=== PATIENT | male | born 1940 | race Caucasian/White ===

== ENCOUNTER 2019-04-29 12:16 | Outpatient (CLI) | payer OTHER, MEDICARE, SELFPAY ==
[2019-04-29 12:59] LABS: Basophils % 0.6 %; Eosinophils # 0.1 10^3/uL (0.0-0.8); Eosinophils % 2.4 %; Hematocrit 36.8 % (42.0-52.0); Hemoglobin 11.9 g/dL (11.7-16.6); Lymphocytes # 1.2 10^3/uL (0.8-4.8); Lymphocytes % 22.9 %; Mean Corpuscular HGB Conc 32.3 g/dL (30.0-36.0); Mean Corpuscular Hemoglobin 29.7 pg (28.0-34.0); Mean Corpuscular Volume 91.8 fL (80-94); Mean Platelet Volume 9.8 fL (7.4-10.4); Monocytes # 0.5 10^3/uL (0.2-0.9); Monocytes % 9.1 %; Neutrophils # 3.3 10^3/uL (1.8-7.7); Neutrophils % 64.6 %; Nucleated Red Blood Cells % 0 %; Platelet Count 174 10^3/cmm (130-400); Red Blood Count 4.01 10^6/uL (4.1-5.3); White Blood Count 5.1 10^3/uL (4.0-10.0)
[2019-04-29 13:22] LABS: Prostate Specific Antigen < 0.02 ng/mL (0-4)
[2019-04-29 13:34] LABS: Alanine Aminotransferase 16 U/L (0-41); Albumin Level 4.2 g/dL (3.5-5.2); Alkaline Phosphatase 78 IU/L (40-130); Anion Gap 14.1 (5-19); Aspartate Amino Transferase 21 U/L (0-40); Blood Urea Nitrogen 22 mg/dL (8-23); Carbon Dioxide 29 mmol/L (22-29); Chloride 98 mmol/L (98-107); Globulin 2.5 g/dL (1.3-4.6); Glucose 114 mg/dL (65-115); Potassium 4.1 mmol/L (3.5-5.1); Sodium 137 mmol/L (136-145); Total Bilirubin 0.4 mg/dL (0.15-1.2); Total Protein 6.7 g/dL (6.6-8.7)
--- NOTE | 2019-05-03 06:25 | ONC FU_ITS ---
Dr. Johns Patient Follow-Up Note Patient: Carlo Fish Unit #: [id number]: 1940 Dicatated By: Jasper Johns M.D.Date of Visit:Apr 29, 2019 Onc Med Follow-up/Prog Note Chief Complaint: Prostate cancer. History of Present Illness: This is a 78 year-old man with adenocarcinoma of the prostate, [place] score 3+4. By clinical evaluation his disease appeared to be stage IIB (pT2c, N0, M0). He was referred to Dr. Ortega in November 2016 for a rising PSA level, ranging from 20-30 ng/mL. His repeat PSA level on 12/16/2016 was 30.00 ng/mL. He underwent TRUSP/biopsy on 01/07/2017. Multiple cores were obtained. Samples from the right base, the left lateral mid prostate, the left lateral base, the left mid prostate, and the left base all showed prostatic adenocarcinoma, Springfield score 3+4, all with 100% involvement with the exception of the left lateral base which was 75% involvement. Negative samples included the right lateral apex, right lateral mid prostate, right lateral base, right apex, right mid prostate, left lateral apex, and left apex. Given the degree of PSA elevation and what appeared to be a larger volume of cancer, he was referred here for consideration of radiation/hormonal manipulation. He was seen by Dr. Austin on 01/23/2017. Subsequent to that visit, he underwent staging evaluation with CT abdomen/pelvis on 01/24/2017 and bone scan on 02/06/2017. The bone scan showed no evidence of osseous metastatic disease. The CT scan showed simple appearing renal cysts. The prostate was not significantly enlarged. A focus of water density fluid measuring 2.4 cm posterior to the left inguinal canal was felt to possibly represent residual postoperative seroma. Several central mesenteric lymph nodes were noted measuring up to 1.3 x 2.1 cm. Retroperitoneal lymph nodes also were noted, including a left anterior pararenal space lymph node measuring 2 cm. A lymph node anterior to the abdominal aorta and inferior vena cava measured up to 1.4 cm. With equivocal findings on the CT abdomen/pelvis and the possibility of stage IV disease (M1a), we opted to begin androgen deprivation therapy and at least initially to defer the radiation. He received his initial injection of Zoladex on 03/05/2017. With that he also took Casodex for 14 days. His follow-up CT abdomen/pelvis on 05/26/2017 showed stable periaortic, peritoneal, and mesenteric lymphadenopathy, felt to be nonspecific and unchanged. There was no evidence of osseous or other metastatic disease. A small seroma along the left inguinal hernia repair also appeared stable, as did a left renal cyst measuring 4.1 cm. He was seen for a follow-up visit on 06/03/2017. His PSA was down to 0.48 ng/mL. Given the stability of the lymphadenopathy in the setting of a declining PSA level, it appeared unlikely that it was metastatic. As such, he continued his androgen deprivation and we then proceeded with radiation to the prostate. He completed treatment on 08/13/2017 to a total dose of 7900 cGy. As of 09/03/2017 his PSA level had declined to 0.02 ng/mL. He continued on androgen deprivation therapy with Zoladex every 3 months. He received his scheduled Zoladex injection in May 2018. His laboratory studies done through the [facility] on 07/20/2018 included a PSA level of 0.00 ng/mL. He was then hospitalized with pneumonia in July 2018. He recovered uneventfully, but at his followup visit in August 2018 he opted to stop his treatment. He was then followed on observation/expectant management. His other medical illnesses include hypertension, hyperlipidemia, valvular heart disease, chronic atrial fibrillation, and GERD. 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 He is a nonsmoker. He is seen for a followup visit. He has been feeling good generally. He reports having a few aches and pains, but that has been an ongoing problem ever since his heart surgery. He has pretty good energy. His ECOG score is 1. His appetite is good. He has no fever, night sweats, or hot flashes. He has some sinus drainage and cough. He has had sore throat off and on. He does not complain of shortness of breath or chest pain. He has had some diarrhea, though overall it has improved. He has no other GI complaints. He has no complaints with bladder function. He has some joint pain, mainly in the fingers. He has neuropathy in his feet, which has been giving him fits. He does take gabapentin for it. Medications: Atenolol 1 Tablet (of 25 mg) Tablet Oral daily, B Complex 1 Tablet Oral b.i.d., Gabapentin 1 Capsule (of 100 mg) Oral t.i.d., Lisinopril-Hydrochlorothiazide 1 Tablet (of 20-25 mg) Oral daily, Pradaxa 1 Tablet (of 150 mg) Capsule Oral b.i.d. Allergies: Losartan Potassium Review of Systems: Constitutional - His energy is pretty good generally. He does some light work at home. His appetite is good and his weight is up about 10 pounds. No fever, chills, hot flashes, or night sweats. ECOG score is 1, ENMT - He has sinus congestion/drainage. No mouth sores. He has a sore throat off and on. No difficulty swallowing, Hematologic/Lymphatic - He bruises easily, Respiratory - No shortness of breath. No cough. No pleuritic pain or hemoptysis, Cardiovascular - He has some soreness in his chest at times. No palpitations, Gastrointestinal - No nausea or vomiting. He has occasional heartburn, depending on what he eats. No diarrhea or constipation. No blood in the stool or black stools, Genitourinary (M) - No dysuria or hematuria. No urinary frequency. No urgency or incontinence, Musculoskeletal - He has pain in his fingers, mainly his middle fingers and thumbs, Integumentary - No skin complications, Neurologic - No headache or dizziness. He has neuropathy in his feet, Psychiatric - No anxiety or depression. No insomnia. Vital Signs: Performed on Apr 29, 2019 13:42 Height - 68.00 in Weight - 193.0 lbs (HIGH) BSA - 2.01 sq.m BMI - 29.35 Temperature - 97.6 F (LOW) Pulse - 64 /min Respiration - 16 /min BP - 119/76 mm(hg) O2 Sat - 96 % Pain - 0 Physical Examination: Constitutional - He looks good generally, Eyes - Sclerae nonicteric. Conjunctivae clear, ENMT - No lesions noted in the oral cavity, Hematologic/Lymphatic - No cervical, clavicular, or axillary adenopathy, Respiratory - Lungs are clear with good air movement bilaterally, Cardiovascular - Heart rhythm is irregular. There is a II/ systolic murmur. There is no gallop or rub noted, Abdomen - Soft. Liver and spleen are not enlarged. There is no abdominal mass or ascites noted and there is no inguinal adenopathy, Extremities - No edema, Neurologic - No focal neurologic deficits noted. Lab/Imaging: Test performed on Apr 29, 2019 12:35 Sodium 137 mmol/L Potassium 4.1 mmol/L Chloride 98 mmol/L CO2 29 mmol/L Anion Gap 14.1 BUN 22 mg/dL Creatinine 1.2 mg/dL Cr Clearance (Est) 63.83 mL/min Glucose 114 mg/dL Calcium 10.0 mg/dL Protein, Total 6.7 g/dL Albumin 4.2 g/dL Globulin 2.5 g/dL Bilirubin, Total 0.4 mg/dL ALT (SGPT) 16 U/L AST (SGOT) 21 U/L Alkaline Phosphatase 78 IU/L WBC 5.1 10 3/uL RBC 4.01 10 6/uL HGB 11.9 g/dL HCT 36.8 % MCV 91.8 fL MCH 29.7 pg MCHC 32.3 g/dL RDW 14.0 % Platelet Count 174 10 3/cmm MPV 9.8 fL Neutrophils 3.3 10 3/uL Lymphocytes 1.2 10 3/uL Monocytes 0.5 10 3/uL Eosinophils 0.1 10 3/uL Basophils 0.0 10 3/uL Neutrophil % 64.6 % Lymphocyte % 22.9 % Monocyte % 9.1 % Eosinophil % 2.4 % Basophils % 0.6 % PSA < 0.02 ng/mL Impression: 1. Patient with [place] score 3+4 adenocarcinoma of the prostate, involving both right and left lobes, baseline PSA 30.00 ng/mL. Bone scan was negative, but CT abdomen/pelvis showed mildly enlarged mesenteric and retroperitoneal lymph nodes, suspicious for nonregional lymph node involvement. As such, his disease was potentially stage IIB (pT2c, N0, M0) versus stage IV (M1a). 2. He underwent TRUSP/biopsy on 01/07/2017. His other medical illnesses include: 3. Hypertension. 4. Hyperlipidemia. 5. 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 6. Chronic atrial fibrillation. 7. GERD. With the PSA elevated to that degree, there was a significant risk that he had nonregional lymph node involvement. As such, it was opted to initiate androgen deprivation therapy and, at least initially, to defer radiation. He received his initial injection of Zoladex on 03/05/2017. With that, he also took Casodex for 14 days. He had a very good objective response to androgen deprivation with his PSA decreasing to 0.48 ng/mL. His follow-up CT scan showed no significant change in the periaortic, peritoneal, and mesenteric lymphadenopathy. The appearance was still nonspecific, but at that point it appeared very unlikely that it was due to metastatic disease. As such he continued his androgen deprivation and he then underwent radiation to the prostate. He completed treatment on 08/13/2017 to a total dose of 7900 cGy. He tolerated it well. He then continued androgen deprivation with Zoladex. In July 2018 he was admitted to the hospital with pneumonia. He recovered uneventfully. At his follow-up visit in August 2018 he opted to stop his treatment. His final Zoladex injection was administered in May 2018. Thus far during follow-up he has remained stable clinically with no evidence of recurrence/progression of the prostate cancer. Plan: He remains on observation/expectant management. I will see him again in August, then at 6-month intervals to coordinate with his followup schedule at the [facility]. Signed By: Jasper Johns M.D. <<Signature on File>>
== END 2019-04-29 12:17 | disposition home or self-care (01) ==
PROVIDERS: Family Provider Emergency Medicine Emergency Medical Services; PCP Emergency Medicine Emergency Medical Services; Visit Provider Internal Medicine Medical Oncology
DX: Z08 Encounter for follow-up examination after completed treatment for malignant neoplasm (principal); Z85.46 Personal history of malignant neoplasm of prostate; I10 Essential (primary) hypertension; E78.5 Hyperlipidemia, unspecified; I48.20 Chronic atrial fibrillation, unspecified; K21.9 Gastro-esophageal reflux disease without esophagitis; G62.9 Polyneuropathy, unspecified; Z92.3 Personal history of irradiation; Z87.01 Personal history of pneumonia (recurrent); Z95.3 Presence of xenogenic heart valve; Z92.21 Personal history of antineoplastic chemotherapy; Z92.23 Personal history of estrogen therapy
CPT/HCPCS: 36415; 80053; 84153; 85025; G0463

== ENCOUNTER 2019-08-26 13:40 | Outpatient (CLI) | payer OTHER, MEDICARE, SELFPAY ==
[2019-08-26 14:41] LABS: Prostate Specific Antigen < 0.02 ng/mL (0-4)
--- NOTE | 2019-08-29 13:10 | ONC FU_ITS ---
Dr. Johns Patient Follow-Up Note Patient: Carlo Fish Unit #: [id number]: 1940 Dicatated By: Jasper Johns M.D.Date of Visit:Aug 26, 2019 Onc Med Follow-up/Prog Note Chief Complaint: Prostate cancer. History of Present Illness: This is a 78 year-old man with adenocarcinoma of the prostate, [place] score 3+4. By clinical evaluation his disease appeared to be stage IIB (pT2c, N0, M0). He was referred to Dr. Ortega in November 2016 for a rising PSA level, ranging from 20-30 ng/mL. His repeat PSA level on 12/16/2016 was 30.00 ng/mL. He underwent TRUSP/biopsy on 01/07/2017. Multiple cores were obtained. Samples from the right base, the left lateral mid prostate, the left lateral base, the left mid prostate, and the left base all showed prostatic adenocarcinoma, Phoenix score 3+4, all with 100% involvement with the exception of the left lateral base which was 75% involvement. Negative samples included the right lateral apex, right lateral mid prostate, right lateral base, right apex, right mid prostate, left lateral apex, and left apex. Given the degree of PSA elevation and what appeared to be a larger volume of cancer, he was referred here for consideration of radiation/hormonal manipulation. He was seen by Dr. Austin on 01/23/2017. Subsequent to that visit, he underwent staging evaluation with CT abdomen/pelvis on 01/24/2017 and bone scan on 02/06/2017. The bone scan showed no evidence of osseous metastatic disease. The CT scan showed simple appearing renal cysts. The prostate was not significantly enlarged. A focus of water density fluid measuring 2.4 cm posterior to the left inguinal canal was felt to possibly represent residual postoperative seroma. Several central mesenteric lymph nodes were noted measuring up to 1.3 x 2.1 cm. Retroperitoneal lymph nodes also were noted, including a left anterior pararenal space lymph node measuring 2 cm. A lymph node anterior to the abdominal aorta and inferior vena cava measured up to 1.4 cm. With equivocal findings on the CT abdomen/pelvis and the possibility of stage IV disease (M1a), we opted to begin androgen deprivation therapy and at least initially to defer the radiation. He received his initial injection of Zoladex on 03/05/2017. With that he also took Casodex for 14 days. His follow-up CT abdomen/pelvis on 05/26/2017 showed stable periaortic, peritoneal, and mesenteric lymphadenopathy, felt to be nonspecific and unchanged. There was no evidence of osseous or other metastatic disease. A small seroma along the left inguinal hernia repair also appeared stable, as did a left renal cyst measuring 4.1 cm. He was seen for a follow-up visit on 06/03/2017. His PSA was down to 0.48 ng/mL. Given the stability of the lymphadenopathy in the setting of a declining PSA level, it appeared unlikely that it was metastatic. As such, he continued his androgen deprivation and we then proceeded with radiation to the prostate. He completed treatment on 08/13/2017 to a total dose of 7900 cGy. As of 09/03/2017 his PSA level had declined to 0.02 ng/mL. He continued on androgen deprivation therapy with Zoladex every 3 months. He received his scheduled Zoladex injection in May 2018. His laboratory studies done through the [facility] on 07/20/2018 included a PSA level of 0.00 ng/mL. He was then hospitalized with pneumonia in July 2018. He recovered uneventfully, but at his followup visit in August 2018 he opted to stop his treatment. He was then followed on observation/expectant management. His other medical illnesses include hypertension, hyperlipidemia, valvular heart disease, chronic atrial fibrillation, and GERD. 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 He is a nonsmoker. He is seen for a followup visit. He has been feeling pretty good generally, though he does complain that he gives out easily. He is doing light work. ECOG score is 1. He has good appetite. He has no fever, night sweats, or hot flashes. He has some shortness of breath with activity. He does not complain of cough, and he has not been having chest pain. He has occasional acid reflux. He has no other GI or complaints. He has no significant joint or bone pain. He does have neuropathy in his feet, for which he is taking gabapentin. Medications: amLODIPine Besylate 1 Tablet (of 2.5 mg) Oral daily, Atenolol 1 Tablet (of 25 mg) Tablet Oral daily, B Complex 1 Tablet Oral b.i.d., Gabapentin 1 Capsule (of 100 mg) Oral t.i.d., Lisinopril-Hydrochlorothiazide 1 Tablet (of 20-25 mg) Oral daily, metFORMIN HCl 1 Tablet (of 1000 mg) Oral b.i.d., Potassium Chloride Tala ER 1 Tablet (of 20 meq) Tablet, controlled release Oral daily, Pradaxa 1 Tablet (of 150 mg) Capsule Oral b.i.d. Allergies: Losartan Potassium Review of Systems: Constitutional - He has generally been feeling good. His energy is okay, but he does get tried easily. His appetite is good and weight is up a few pounds. No fever, night sweats, or hot flashes. ECOG score is 1, ENMT - No sinus congestion/drainage. No mouth sores. No sore throat or difficulty swallowing, Hematologic/Lymphatic - No abnormal bruising or bleeding, Respiratory - He gets short of breath with exertional activity. No cough. No pleuritic pain or hemoptysis, Cardiovascular - No angina pain. No palpitations, Gastrointestinal - No nausea or vomiting. He has occasional heartburn depending on what he eats. No diarrhea or constipation. No blood in the stool or black stools, Genitourinary (M) - No dysuria or hematuria. No urinary frequency. No urgency or incontinence, Musculoskeletal - No joint or bone pain, Integumentary - Denies alopecia, blistering, bruising, dry skin, facial burning, nail changes, photosensitivity, pruritus, rash and urticaria, Neurologic - No headaches. He is having some dizziness. He is taking 400mg gabapentin for neuropathy. No other focal neurologic symptoms, Psychiatric - No anxiety or depression. No insomnia. Vital Signs: Performed on Aug 26, 2019 15:04 Height - 68.00 in Weight - 195.8 lbs (HIGH) BSA - 2.03 sq.m BMI - 29.77 Temperature - 97.4 F (LOW) Pulse - 67 /min Respiration - 20 /min BP - 114/54 mm(hg) O2 Sat - 98 % Pain - 0 Physical Examination: Constitutional - He looks good generally, Eyes - Sclerae nonicteric. Conjunctivae clear, ENMT - No lesions noted in the oral cavity, Hematologic/Lymphatic - No cervical, clavicular, or axillary adenopathy, Respiratory - Lungs are clear with good air movement bilaterally, Cardiovascular - Heart rhythm is irregular. There is a II/ systolic murmur. There is no gallop or rub noted, Abdomen - Soft. Liver and spleen are not enlarged. There is no abdominal mass or ascites noted and there is no inguinal adenopathy, Extremities - Trace edema. He has good dorsalis pedis pulses bilaterally, Neurologic - No focal neurologic deficits noted. Lab/Imaging: Test performed on Aug 26, 2019 13:50 PSA < 0.02 ng/mL Impression: 1. Patient with Phoenix score 3+4 adenocarcinoma of the prostate, involving both right and left lobes, baseline PSA 30.00 ng/mL. Bone scan was negative, but CT abdomen/pelvis showed mildly enlarged mesenteric and retroperitoneal lymph nodes, suspicious for nonregional lymph node involvement. As such, his disease was potentially stage IIB (pT2c, N0, M0) versus stage IV (M1a). 2. He underwent TRUSP/biopsy on 01/07/2017. His other medical illnesses include: 3. Hypertension. 4. Hyperlipidemia. 5. 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 6. Chronic atrial fibrillation. 7. GERD. With the PSA elevated to that degree, there was a significant risk that he had nonregional lymph node involvement. As such, it was opted to initiate androgen deprivation therapy and, at least initially, to defer radiation. He received his initial injection of Zoladex on 03/05/2017. With that, he also took Casodex for 14 days. He had a very good objective response to androgen deprivation with his PSA decreasing to 0.48 ng/mL. His follow-up CT scan showed no significant change in the periaortic, peritoneal, and mesenteric lymphadenopathy. The appearance was still nonspecific, but at that point it appeared very unlikely that it was due to metastatic disease. As such he continued his androgen deprivation and he then underwent radiation to the prostate. He completed treatment on 08/13/2017 to a total dose of 7900 cGy. He tolerated it well. He then continued androgen deprivation with Zoladex. In July 2018 he was admitted to the hospital with pneumonia. He recovered uneventfully. At his follow-up visit in August 2018 he opted to stop his treatment. His final Zoladex injection was administered in May 2018. Thus far during follow-up he has been doing well clinically with no evidence of recurrence/progression of the prostate cancer. Plan: He remains on observation/expectant management. He will be scheduled for a follow-up visit with restaging CT abdomen/pelvis in 6 months. Signed By: Jasper Johns M.D. <<Signature on File>>
== END 2019-08-26 13:41 | disposition home or self-care (01) ==
LOC: ONCMED 13:44
PROVIDERS: PCP Emergency Medicine Emergency Medical Services; Visit Provider Internal Medicine Medical Oncology
DX: Z08 Encounter for follow-up examination after completed treatment for malignant neoplasm (principal); Z85.46 Personal history of malignant neoplasm of prostate; I10 Essential (primary) hypertension; E78.5 Hyperlipidemia, unspecified; I38 Endocarditis, valve unspecified; I48.19 Other persistent atrial fibrillation; K21.9 Gastro-esophageal reflux disease without esophagitis; Z79.818 Long term (current) use of other agents affecting estrogen receptors and estrogen levels
CPT/HCPCS: 36415; 84153; 99214

== ENCOUNTER 2019-08-31 14:49 | Outpatient (CLI) | payer OTHER, MEDICARE, SELFPAY ==
--- NOTE | 2019-08-31 14:55 | USCV_ITS ---
Carlo Fish Age: 78 Gender: M : 1940 Exam Date: 08/31/2019 15:12 Ordering Phys: Dejon Pope DO Technologist: Jason De La Garza [place] [facility] [place]: BILATERAL FEET PAIN AND BURNING RIGHT LEFT Brachial 132.00 mmHg Brachial 118.00 mmHg Pressure (mmHg) Waveform Pressure (mmHg) Waveform 157.00 SPECIALTY TRIMMER 150.00 150.00 DPA 137.00 1.19 Ankle/Brachial Index 1.14 107.00 Pre-Exercise Toe Pressure 113.00 0.81 Pre-Exercise Toe/Brachial Index 0.86 FINDINGS Normal resting ABIs bilaterally Normal resting TBIs bilaterally CONCLUSIONS No significant arterial obstruction, based on the above findings Dr Ascencion Boswell MD FACC (Electronically Signed) Final Date: 31 August 2019 18:38 S
== END 2019-08-31 14:50 | disposition home or self-care (01) ==
LOC: RAD 14:53
PROVIDERS: PCP Emergency Medicine Emergency Medical Services; Visit Provider Emergency Medicine Emergency Medical Services
DX: M79.672 Pain in left foot (principal); M79.671 Pain in right foot
CPT/HCPCS: 93922

== ENCOUNTER 2020-03-20 12:36 | Outpatient (CLI) | payer OTHER, SELFPAY ==
--- NOTE | 2020-03-20 12:39 | CT_ITS ---
WS: [id number] CT ABDOMEN PELVIS TECHNIQUE: Contrast-enhanced CT of the abdomen and pelvis with coronal and sagittal reformatted image s. CLINICAL INFORMATION: PROSTATE CANCER/LYMPHADENOPATHY COMPARISON: CT 3 5018 DLP: 953.[address] scans at [facility] use at least one of these dose optimization techniques: automat ed exposure control; mA and/or kV adjustment per patient size (includes targeted exams where dose is matched to clinical indication); or iterative reconstruction. FINDINGS: Mild diffuse fatty infiltration liver. Mild intrahepatic biliary ductal dilatation likely physiologic postcholecystectomy is unchanged. Cholecystectomy clips. Normal portal vein and splenic vein. Mild s plenomegaly measuring 13.2 cm unchanged. Small cyst or hemangioma in the spleen. Bibasilar atelectasis. Small moderate esophageal hiatal hernia. Normal pancreatic parenchymal enhance ment. Adrenal glands are normal. Normal renal parenchymal enhancement. Bilateral renal cysts larger o n the left measuring 3.8 cm appears unchanged. Small right lower pole renal cyst is increased in size slightly compared to previous today measuring 2.4 cm Mild aortic calcification. Stable enlarged periaortic and retroperitoneal lymph nodes unchanged. Stab le prominent lymph nodes along the mesenteric root. A few sigmoid diverticuli. No evidence of acute diverticulitis. No evidence of high-grade small or la rge bowel obstruction. Stable fat-containing left inguinal hernia with small seroma along the inguina l canal. Normal lumbar spine. CT/CT abdomen pelvis w con* [id number] IMPRESSION: 1. Mild diffuse fatty infiltration of the liver. Mild intrahepatic biliary nba davida dilatation postcholecystectomy is unchanged. 2. No evidence of osseous metastatic disease. 3. Stable periaortic, retroperitoneal, and mesenteric lymphadenopathy is uncha nged. 4. Small seroma along the left inguinal hernia repair is stable. 5. Bilateral renal cysts. 6. Prior cholecystectomy.
[2020-03-20] MEDS: iohexol 300 mg/mL 50 mL Btl PO (13:30)
[2020-03-20 15:07] LABS: Blood Urea Nitrogen 19 mg/dL (8-23)
[2020-03-20] MEDS: iohexol 300 mg/mL 100 mL Btl IV (15:29)
== END 2020-03-20 12:37 | disposition home or self-care (01) ==
PROVIDERS: PCP Emergency Medicine Emergency Medical Services; Visit Provider Internal Medicine Medical Oncology
DX: C61 Malignant neoplasm of prostate (principal); R59.1 Generalized enlarged lymph nodes; K76.0 Fatty (change of) liver, not elsewhere classified; N28.1 Cyst of kidney, acquired; Z90.49 Acquired absence of other specified parts of digestive tract
CPT/HCPCS: 36415; 74177; 82565; 84520

== ENCOUNTER 2020-03-30 08:02 | Outpatient (CLI) | payer MEDICARE, SELFPAY ==
--- NOTE | 2020-04-02 11:02 | ONC FU_ITS ---
Dr. Johns Patient Follow-Up Note Patient: Carlo Fish Unit #: [id number]: 1940 Dicatated By: Jasper Johns M.D.Date of Visit:Mar 30, 2020 Onc Med Follow-up/Prog Note Chief Complaint: Prostate cancer. History of Present Illness: This is a 79 year-old man with adenocarcinoma of the prostate, Langhorne score 3+4. By clinical evaluation his disease appeared to be stage IIB (pT2c, N0, M0). He was referred to Dr. Ortega in November 2016 for a rising PSA level, ranging from 20-30 ng/mL. His repeat PSA level on 12/16/2016 was 30.00 ng/mL. He underwent TRUSP/biopsy on 01/07/2017. Multiple cores were obtained. Samples from the right base, the left lateral mid prostate, the left lateral base, the left mid prostate, and the left base all showed prostatic adenocarcinoma, Langhorne score 3+4, all with 100% involvement with the exception of the left lateral base which was 75% involvement. Negative samples included the right lateral apex, right lateral mid prostate, right lateral base, right apex, right mid prostate, left lateral apex, and left apex. Given the degree of PSA elevation and what appeared to be a larger volume of cancer, he was referred here for consideration of radiation/hormonal manipulation. He was seen by Dr. Austin on 01/23/2017. Subsequent to that visit, he underwent staging evaluation with CT abdomen/pelvis on 01/24/2017 and bone scan on 02/06/2017. The bone scan showed no evidence of osseous metastatic disease. The CT scan showed simple appearing renal cysts. The prostate was not significantly enlarged. A focus of water density fluid measuring 2.4 cm posterior to the left inguinal canal was felt to possibly represent residual postoperative seroma. Several central mesenteric lymph nodes were noted measuring up to 1.3 x 2.1 cm. Retroperitoneal lymph nodes also were noted, including a left anterior pararenal space lymph node measuring 2 cm. A lymph node anterior to the abdominal aorta and inferior vena cava measured up to 1.4 cm. With equivocal findings on the CT abdomen/pelvis and the possibility of stage IV disease (M1a), we opted to begin androgen deprivation therapy and at least initially to defer the radiation. He received his initial injection of Zoladex on 03/05/2017. With that he also took Casodex for 14 days. His follow-up CT abdomen/pelvis on 05/26/2017 showed stable periaortic, peritoneal, and mesenteric lymphadenopathy, felt to be nonspecific and unchanged. There was no evidence of osseous or other metastatic disease. A small seroma along the left inguinal hernia repair also appeared stable, as did a left renal cyst measuring 4.1 cm. He was seen for a follow-up visit on 06/03/2017. His PSA was down to 0.48 ng/mL. Given the stability of the lymphadenopathy in the setting of a declining PSA level, it appeared unlikely that it was metastatic. As such, he continued his androgen deprivation and we then proceeded with radiation to the prostate. He completed treatment on 08/13/2017 to a total dose of 7900 cGy. As of 09/03/2017 his PSA level had declined to 0.02 ng/mL. He continued on androgen deprivation therapy with Zoladex every 3 months. He received his scheduled Zoladex injection in May 2018. His laboratory studies done through the [facility] on 07/20/2018 included a PSA level of 0.00 ng/mL. He was then hospitalized with pneumonia in July 2018. He recovered uneventfully, but at his followup visit in August 2018 he opted to stop his treatment. He was then followed on observation/expectant management. His other medical illnesses include hypertension, hyperlipidemia, valvular heart disease, chronic atrial fibrillation, and GERD. 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 He is a nonsmoker. He is seen for a followup visit. He has been continuing his regular follow-up with Dr. Pope at the [facility], which includes laboratory studies every 6 months. His most recent PSA level was basically stable at 0.02 ng/mL. He has been feeling good generally. He has good energy and activity tolerance. ECOG score is 0. Appetite also has been good. He has no fever, night sweats, or hot flashes. He does not complain of shortness of breath, cough, or chest pain. He currently has no GI or complaints. In particular, his bowel function has improved. He has some age-related musculoskeletal pain. He does not complain of headache or dizziness. He has a little bit of numbness in his fingers at night. Medications: amLODIPine Besylate 1 Tablet (of 2.5 mg) Oral daily, Atenolol 1 Tablet (of 25 mg) Tablet Oral daily, B Complex 1 Tablet Oral b.i.d., Gabapentin 1 Capsule (of 100 mg) Oral t.i.d., Lisinopril-Hydrochlorothiazide 1 Tablet (of 20-25 mg) Oral daily, metFORMIN HCl 1 Tablet (of 1000 mg) Oral b.i.d., Potassium Chloride Tala ER 1 Tablet (of 20 meq) Tablet, controlled release Oral daily, Pradaxa 1 Tablet (of 150 mg) Capsule Oral b.i.d. Allergies: Losartan Potassium Vital Signs: Performed on Mar 30, 2020 08:10 Height - 68.00 in Weight - 190.8 lbs (LOW) BSA - 2.00 sq.m BMI - 29.01 Temperature - 97.4 F (LOW) Pulse - 63 /min Respiration - 16 /min BP - 120/69 mm(hg) O2 Sat - 99 % Pain - 0 Physical Examination: Constitutional - He looks good generally, Eyes - Sclerae nonicteric. Conjunctivae clear, ENMT - No lesions noted in the oral cavity, Hematologic/Lymphatic - No cervical, clavicular, or axillary adenopathy, Respiratory - Lungs are clear with good air movement bilaterally, Cardiovascular - Heart rhythm is irregular. There is a II/ systolic murmur. There is no gallop or rub noted, Abdomen - Soft. Liver and spleen are not enlarged. There is no abdominal mass or ascites noted and there is no inguinal adenopathy, Extremities - No edema, Neurologic - No focal neurologic deficits noted. Historic Problem List: 1. Langhorne score 3+4 adenocarcinoma of the prostate, involving both right and left lobes, baseline PSA 30.00 ng/mL. Bone scan was negative, but CT abdomen/pelvis showed mildly enlarged mesenteric and retroperitoneal lymph nodes, suspicious for nonregional lymph node involvement. As such, his disease was potentially stage IIB (T2c, N0, M0) versus stage IV (M1a). He underwent TRUSP/biopsy on 01/07/2017. 2. With the PSA elevated to that degree, there was a significant risk that he had nonregional lymph node involvement. As such, it was opted to initiate androgen deprivation therapy and, at least initially, to defer radiation. He received his initial injection of Zoladex on 03/05/2017. He then underwent radiation to the prostate. He completed treatment on 08/13/2017 to a total dose of 7900 cGy. His final Zoladex injection was administered in May 2018. 3. Hypertension. 4. Hyperlipidemia. 5. 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 6. Chronic atrial fibrillation. 7. GERD. Problems Addressed with this Encounter and Plan: 1. Adenocarcinoma of the prostate, Langhorne score 3+4, stage IIB (T2c, N0, M0). His treatment included androgen deprivation therapy for 15 months in combination with definitive radiation to the prostate, completed in July 2017 to a total dose of 7900 cGy. Thus far there has been no evidence of recurrence. He remains on observation/expectant management. He is going to continue his regular follow-up at the [facility], which should include a repeat PSA level least every 6 months. I can just see him again as needed. 2. He had CT evidence of mildly enlarged mesenteric and retroperitoneal lymph nodes. This was initially suspicious for nonregional lymph node involvement. However, as the findings have remained stable during the treatment and subsequent follow-up for his prostate cancer, it appears very unlikely to represent neoplastic disease. Given the period of stability, I do not think he requires any further routine surveillance CT imaging. Signed By: Jasper Johns M.D. <<Signature on File>>
== END 2020-03-30 08:03 | disposition home or self-care (01) ==
LOC: ONCMED 08:05
PROVIDERS: PCP Emergency Medicine Emergency Medical Services; Visit Provider Internal Medicine Medical Oncology
DX: C61 Malignant neoplasm of prostate (principal); R59.9 Enlarged lymph nodes, unspecified; I10 Essential (primary) hypertension; E78.5 Hyperlipidemia, unspecified; I38 Endocarditis, valve unspecified; I48.20 Chronic atrial fibrillation, unspecified; K21.9 Gastro-esophageal reflux disease without esophagitis; Z92.3 Personal history of irradiation; Z79.01 Long term (current) use of anticoagulants; Z92.23 Personal history of estrogen therapy
CPT/HCPCS: 99214

== ENCOUNTER 2021-07-25 12:42 | Outpatient (CLI) | payer OTHER, SELFPAY ==
--- NOTE | 2021-07-25 14:19 | USCV_ITS ---
Carlo Fish Age: 80 Gender: M : 1940 Exam Date: 07/25/2021 14:24 Ordering Phys: Dejon Pope DO Technologist: Exam Location: [facility] [place] Indication: pad Risk Factors: Previous Vascular Surgery: RIGHT LEFT BP: 105.0 / 69.00 BP: 98.00/ 67.00 0 Waveform Velocity (cm/s) Velocity (cm/s) Waveform Triphasic 104.1 Iliac Prox 80.2 Triphasic Triphasic 102.5 Iliac Mid 74.9 Triphasic Triphasic 105.6 Iliac Distal 97.3 Triphasic Triphasic 108.8 HIGH SPEED [employer]ER 68.4 Triphasic Triphasic 99.4 SFA Prox 92.0 Triphasic Triphasic 83.9 SFA Mid 69.7 Triphasic Triphasic SFA Dist Triphasic 113.4 63.1 Triphasic 93.2 POP 61.8 Triphasic Triphasic 68.4 UPHOLSTERY [employer]IMMER 86.8 Triphasic Triphasic 64.0 DPA 71.7 Triphasic 1.1 DEVI 1.1 FINDINGS Normal arterial Doppler waveforms Normal resting ABIs bilaterally Normal arterial Doppler flow velocities CONCLUSIONS No evidence of any significant arterial obstruction, based on the above findings. Dr Ascencion Boswell MD [facility] (Electronically Signed) Final Date: 25 Jul 2021 18:16 S
== END 2021-07-25 12:43 | disposition home or self-care (01) ==
LOC: RAD 12:43
PROVIDERS: PCP Emergency Medicine Emergency Medical Services; Visit Provider Emergency Medicine Emergency Medical Services
DX: Z01.89 Encounter for other specified special examinations (principal)
CPT/HCPCS: 93925